=== PATIENT | male | born 1960 | race Two or more races ===

== ENCOUNTER 2024-03-18 15:27 | Inpatient (IN) | payer OTHER ==
[~2024-03-18] VITALS: Ht 180.3 cm; Wt 81.6 kg
[2024-03-18 15:35] VITALS: BP 109/55; RESP 16; TEMP 98.1; O2SAT 96
[2024-03-18] MEDS: LORazepam 2 MG/ML VIAL IM STA (15:43)
[2024-03-18] MEDS: diphenhydrAMINE 50 MG/ML VIAL IM ONE (15:45)
[2024-03-18] MEDS: HALOPERIDOL IM 5 MG/ML VIAL IM ONE (15:49)
[2024-03-18 16:22] LABS: BASOPHILS % (AUTO) 0.2 % (0.0-2.0); EOSINOPHILS % (AUTO) 0.2 % (0.0-4.0); HEMATOCRIT 46.4 % (36-52); LYMPHOCYTES # (AUTO) 1.9 K/uL (2.0-11.5); MEAN CORPUSCULAR HEMOGLOBIN 35 pg (27-31); MEAN CORPUSCULAR HGB CONC 34 g/dL (33-37); MEAN CORPUSCULAR VOLUME 100.8 fL (80-94); MONOCYTES # (AUTO) 0.7 K/uL (0.8-1.0); MONOCYTES % (AUTO) 5.8 % (1.7-9.3); NEUTROPHILS # (AUTO) 10.1 K/uL (1.8-7.7); NEUTROPHILS % (AUTO) 78.8 % (42.2-75.2); PLATELET COUNT (AUTO) 380 K/uL (140-450); RED CELL DISTRIBUTION WIDTH 14.1 % (11.6-13.7); WHITE BLOOD COUNT (AUTO) 12.9 K/uL (4.8-10.8)
[2024-03-18 16:35] LABS: ANION GAP 17.6 (8-16); CALCIUM 8.4 mg/dL (8.5-10.1); CARBON DIOXIDE 23.3 mmol/L (21-32); CREATININE 1.2 mg/dL (0.6-1.3); POTASSIUM 3.9 mmol/L (3.5-5.1)
[2024-03-18 16:47] LABS: ALANINE AMINOTRANSFERASE 18 U/L (12-78); ALBUMIN 4.1 g/dL (3.4-5.0); ALKALINE PHOSPHATASE 118 U/L (50-136); ASPARTATE AMINOTRANSFERASE 26 U/L (15-37); BILIRUBIN,DIRECT 0.2 mg/dL (0.0-0.3); CREATINE KINASE, TOTAL 307 U/L (39-308); FREE T4 (FREE THYROXINE) 0.37 ng/dL (0.76-1.46); THYROID STIMULATING HORMONE 28.91 uIU/mL (0.34-3.74); TOTAL BILIRUBIN 0.7 mg/dL (0.0-1.0); TOTAL PROTEIN, SERUM 7.7 g/dL (6.4-8.2)
[2024-03-18 16:54] LABS: SALICYLATE < 2.8 mg/dL (2.8-20.0)
[2024-03-18 16:55] LABS: ACETAMINOPHEN < 0.5 ug/ml (10-30); ALCOHOL, BLOOD 416 mg/dL (<10)
[2024-03-18 16:57] LABS: MAGNESIUM 2.4 mg/dL (1.8-2.4)
[2024-03-18] MEDS ORDERED: ALBUTEROL 0.083% 2.5 MG/3 ML NEBU INH PRN (17:35)
[2024-03-18] MEDS ORDERED: HYDROcodone/APAP 5/325 MG 1 TAB TAB PO PRN (17:35)
[2024-03-18] MEDS ORDERED: ACETAMINOPHEN 325 MG TAB PO PRN (17:35)
[2024-03-18] MEDS ORDERED: ONDANSETRON 4 MG/2 ML VIAL IVP PRN (17:35)
[2024-03-18] MEDS: NACL 0.9% 1,000 ML IV ONE (17:44)
[2024-03-18 17:51] LABS: APPEARANCE,URINE CLEAR (CLEAR); BILIRUBIN,URINE NEGATIVE (NEGATIVE); BLOOD, URINE 1+ (NEGATIVE); COLOR,URINE YELLOW (YELLOW); LEUKOCYTE ESTERASE ,URINE NEGATIVE (NEGATIVE); NITRITE, URINE NEGATIVE (NEGATIVE); PROTEIN,URINE NEGATIVE (NEGATIVE); UGLUCOSE NEGATIVE (NEGATIVE); UROBILINOGEN,URINE 0.2 EU/dL (0.2 - 1)
[2024-03-18] MEDS ORDERED: AZITHROMYCIN 500 MG INJ VIAL IV ONE (17:51)
[2024-03-18] MEDS ORDERED: cefTRIAXone 1,000 MG VIAL ONE (17:52)
[2024-03-18 18:07] LABS: BACTERIA,URINE None Seen /HPF (None Seen); SQUAMOUS EPITHELIAL CELL,UR 0-3 (FEW) /LPF (0-3 (FEW)); WBC,URINE 0-5 /HPF (0-5)
[2024-03-18 18:09] LABS: AMPHETAMINE, URINE NEGATIVE ng/ml (NEG <=1000); BARBITURATE, URINE NEGATIVE ng/ml (NEG <=200); BENZODIAZEPINE, URINE NEGATIVE ng/mL (NEG <=200)
[2024-03-18 18:10] LABS: CANNABINOID, URINE POSITIVE ng/mL (NEG <=50); COCAINE, URINE NEGATIVE ng/mL (NEG <=300); OPIATE, URINE NEGATIVE ng/mL (NEG <=2000); PHENCYCLIDINE SCREEN,URINE NEGATIVE ng/mL (NEG <=25)
[2024-03-18] MEDS: AZITHROMYCIN 500 MG in DEXTROSE 5% 250 ML IV ONE (18:46)
[2024-03-18] MEDS ORDERED: LORazepam 2 MG/ML VIAL ONE (19:16)
[2024-03-18 20:44] VITALS: PULSE 71; RESP 18; O2SAT 85
[2024-03-18] MEDS: LORazepam 1 MG TAB PO SCH (21:00)
[2024-03-19] VITALS (11 sets, daily range): BP systolic 102–137; BP diastolic 61–90; PULSE 61–91; RESP 18; TEMP 97.7–98.7; O2SAT 94–100
[2024-03-19 06:23] LABS: BASOPHILS % (AUTO) 0.3 % (0.0-2.0); EOSINOPHILS % (AUTO) 0.2 % (0.0-4.0); HEMATOCRIT 45.2 % (36-52); HEMOGLOBIN 15.4 g/dL (12.0-18.0); LYMPHOCYTES # (AUTO) 1.1 K/uL (2.0-11.5); LYMPHOCYTES % (AUTO) 11.5 % (20.5-51.1); MEAN CORPUSCULAR HEMOGLOBIN 34 pg (27-31); MEAN CORPUSCULAR HGB CONC 34 g/dL (33-37); MEAN CORPUSCULAR VOLUME 100.9 fL (80-94); MONOCYTES # (AUTO) 0.6 K/uL (0.8-1.0); NEUTROPHILS # (AUTO) 7.6 K/uL (1.8-7.7); PLATELET COUNT (AUTO) 362 K/uL (140-450); RED BLOOD CELL COUNT(AUTO) 4.47 MIL/uL (4.20-6.10); RED CELL DISTRIBUTION WIDTH 14.3 % (11.6-13.7); WHITE BLOOD COUNT (AUTO) 9.3 K/uL (4.8-10.8)
[2024-03-19 06:50] LABS: ALBUMIN 3.7 g/dL (3.4-5.0); ANION GAP 17.8 (8-16); CARBON DIOXIDE 22.4 mmol/L (21-32); POTASSIUM 4.2 mmol/L (3.5-5.1); TOTAL BILIRUBIN 0.7 mg/dL (0.0-1.0); TOTAL PROTEIN, SERUM 7.1 g/dL (6.4-8.2)
[2024-03-19] MEDS: THIAMINE 100 MG TAB PO SCH (10:01)
[2024-03-19] MEDS: FOLIC ACID 1 MG TAB PO SCH (10:01)
[2024-03-19] MEDS: MULTIVITAMIN 1 TAB PO SCH (10:02)
[2024-03-19] MEDS: ENOXAPARIN 40 MG/0.4 ML SYR SUBQ SCH (10:04)
[2024-03-19] MEDS: LORazepam 1 MG TAB PO PRN (18:09)
[2024-03-19] MEDS: AZITHROMYCIN 500 MG in DEXTROSE 5% 250 ML IV SCH (18:12)
[2024-03-19] MEDS: MEDS-TO-BEDS MC SCH (21:43)
[2024-03-20] VITALS (9 sets, daily range): BP systolic 108–129; BP diastolic 70–93; PULSE 69–98; RESP 18–20; TEMP 97.5–98.3; O2SAT 93–99
[2024-03-20] MEDS: LORazepam 2 MG/ML VIAL IVP PRN (09:29)
[2024-03-20] MEDS ORDERED: AMOX1TAB8 PO (15:12)
[2024-03-20] MEDS: GABAPENTIN 300 MG CAP PO SCH (21:05)
[2024-03-20] MEDS: QUEtiapine FUMARATE 100 MG TAB PO SCH (21:06)
[2024-03-21 01:46] VITALS: O2SAT 97
[2024-03-21 04:01] VITALS: BP 100/71; PULSE 74; RESP 19; TEMP 97.2; O2SAT 96
[2024-03-21 08:00] VITALS: BP 105/76; PULSE 69; RESP 18; TEMP 97; O2SAT 96
[2024-03-21] MEDS: CITALOPRAM 20 MG TAB PO SCH (09:40)
[2024-03-21] MEDS: QUEtiapine FUMARATE 25 MG TAB PO SCH (09:41)
[2024-03-21 16:05] VITALS: PULSE 80; RESP 16; O2SAT 96
[2024-03-21 20:00] VITALS: BP 121/74; PULSE 88; RESP 17; RESP 18; TEMP 98.6; O2SAT 98
[2024-03-21 20:12] VITALS: O2SAT 98
[2024-03-22 04:00] VITALS: BP 98/76; PULSE 72; RESP 18; TEMP 97.6; O2SAT 99
[2024-03-22 08:00] VITALS: BP 106/68; PULSE 18; PULSE 74; RESP 18; TEMP 97.5; O2SAT 94
[2024-03-22 12:36] VITALS: O2SAT 96
[2024-03-22 16:00] VITALS: BP 110/72; PULSE 69; RESP 18; TEMP 97.8; O2SAT 97
[2024-03-22 20:00] VITALS: PULSE 80; RESP 18; O2SAT 97
[2024-03-22] MEDS: CRUSHER, PILL MC ONE (20:51)
[2024-03-23 04:00] VITALS: BP 114/74; PULSE 68; RESP 18; TEMP 98.2; O2SAT 96
[2024-03-23 08:00] VITALS: PULSE 68; RESP 18; O2SAT 98
[2024-03-23 09:58] VITALS: O2SAT 98
[2024-03-23 11:12] VITALS: O2SAT 98
[2024-03-23 12:00] VITALS: BP 128/60; PULSE 70; RESP 18; TEMP 98
[2024-03-23 12:20] VITALS: BP 104/78; PULSE 68; RESP 18; TEMP 96.4; O2SAT 98
== END 2024-03-23 18:17 | disposition home or self-care (01) | DRG 137 ==
LOC: MED 15:27 → MTU 17:40
PROVIDERS: ADMIT Hospitalist; ATTEND Hospitalist
DX: J15.69 Pneumonia due to other Gram-negative bacteria (principal); J96.01 Acute respiratory failure with hypoxia; R45.851 Suicidal ideations; J15.9 Unspecified bacterial pneumonia; Z20.822 Contact with and (suspected) exposure to COVID-19; F10.239 Alcohol dependence with withdrawal, unspecified; F20.9 Schizophrenia, unspecified; F15.10 Other stimulant abuse, uncomplicated; Z79.899 Other long term (current) drug therapy
CPT/HCPCS: 36415; 70450; 71045; 72125; 80048; 80053; 80076; 80305; 81001; 82550; 83690; 83735; 84439; 84443; 84484; 85025; 87040; 87081; 90715; 93005; 96365; 96372; 96375; 97116; 97163-GP; 99291; G0480; G0482; J0456; J0696; J1200; J1630; J1650; J2060; J7060